=== PATIENT | female | born 1980 | race Caucasian/White ===

== ENCOUNTER → 2016-11-25 | Outpatient (CLI) | payer OTHER ==
--- NOTE | 2016-11-25 09:20 | MM ---
Reason for exam: screening (asymptomatic). Baseline mammogram. History: Family history of breast cancer in paternal cousin at age 48. Took hormonal contraceptives beginning at age 18. Physical Findings: Nurse did not find any significant physical abnormalities on exam. MG Screening Mammo w CAD Bilateral CC and MLO view(s) were taken. The breast tissue is heterogeneously dense. This may lower the sensitivity of mammography. There is no discrete abnormality. These results were verbally communicated with the patient and result sheet given to the patient on 11/25/16. ASSESSMENT: Negative, BI-RAD 1 RECOMMENDATION: Routine screening mammogram of both breasts at age 38. (unless clinical indication to start sooner)
== END | disposition home or self-care (01) ==
LOC: RADMAMWWP 08:23
PROVIDERS: ATTEND Family Medicine
DX: Z12.31 Encounter for screening mammogram for malignant neoplasm of breast (principal)

== ENCOUNTER → 2023-04-15 | Outpatient (CLI) | payer OTHER ==
--- NOTE | 2023-04-19 14:21 | MM ---
Reason for Exam: Screening (asymptomatic). Last mammogram was performed 6 year(s) and 4 month(s) ago. Patient History: Menarche at age 9. First Full-Term at age 16. Hormonal Contraceptives, from age 18 until age 20. Paternal cousin had breast cancer, age 48. Maternal aunt had breast cancer, age 73. Maternal aunt tested for BRCA1 outcome was negative. Risk Values: Mercy 5 year model risk: 0.6%. NCI Lifetime model risk: 7.7%. Prior Study Comparison: 11/25/2016 Bilateral Screening Mammogram, [facility]. Tissue Density: The breast tissue is heterogeneously dense. This may lower the sensitivity of mammography. Findings: Analyzed By CAD. Asymmetric density superior left MLO view anterior to middle depth appears more defined. This may represent superimposition shadow but further evaluation is recommended. Otherwise, no significant change. Overall Assessment: Incomplete: need additional imaging evaluation, BI-RAD 0 Management: Special View Mammogram of the left breast. Diagnostic Breast Ultrasound of the left breast. . Electronically signed and approved by: Mercedez Humphrey M.D. Radiologist
== END | disposition home or self-care (01) ==
LOC: RADMAMWWP 16:12
PROVIDERS: ATTEND Family Medicine
DX: Z12.31 Encounter for screening mammogram for malignant neoplasm of breast (principal); Z80.3 Family history of malignant neoplasm of breast
CPT/HCPCS: 77063; 77067

== ENCOUNTER → 2023-05-19 | Outpatient (CLI) | payer OTHER ==
--- NOTE | 2023-05-19 09:06 | MM ---
Reason for Exam: Additional evaluation requested from abnormal screening. Last screening mammogram was performed 1 month(s) ago. Patient History: Menarche at age 9. First Full-Term at age 16. Patient has history of breast feeding. Hormonal Contraceptives, from age 18 until age 20. Paternal cousin had breast cancer, age 48. Maternal aunt had breast cancer, age 73. Maternal aunt tested for BRCA1 outcome was negative. Risk Values: Mercy 5 year model risk: 0.6%. NCI Lifetime model risk: 7.7%. Prior Study Comparison: 11/25/2016 Bilateral Screening Mammogram, [facility]. 04/15/2023 Bilateral MG 3D screening mammo w/cad, [facility]. Tissue Density: Left: The breast tissue is heterogeneously dense. This may lower the sensitivity of mammography. Findings: Analyzed By CAD. Nodular density is much improved on spot compression imaging. Continued ultrasound evaluation however is recommended. Overall Assessment: Incomplete: need additional imaging evaluation, BI-RAD 0 Management: Diagnostic Breast Ultrasound of the left breast. . Results were given to the patient verbally at the time of exam. Patient should continue monthly self-breast exams. A clinical breast exam by your physician is recommended on an annual basis. This exam should not preclude additional follow-up of suspicious palpable abnormalities. Note on Mercy scores and lifetime risk: 1. A Mercy score greater than 3% is considered moderate risk. If this is the case, consider specialist referral to assess eligibility for a risk reducing agent. 2. If overall lifetime risk for the development of breast cancer is 20% or higher, the patient may qualify for future screening with alternating mammogram and breast MRI. Electronically signed and approved by: Javier Sweeney M.D. Radiologis
--- NOTE | 2023-05-19 09:24 | USB ---
Reason for Exam: Additional evaluation requested from abnormal screening. Patient History: Menarche at age 9. First Full-Term at age 16. Patient has history of breast feeding. Hormonal Contraceptives, from age 18 until age 20. Paternal cousin had breast cancer, age 48. Maternal aunt had breast cancer, age 73. Maternal aunt tested for BRCA1 outcome was negative. Risk Values: Mercy 5 year model risk: 0.6%. NCI Lifetime model risk: 7.7%. Technique: Method: Targeted. Prior Study Comparison: 11/25/2016 Bilateral Screening Mammogram, [facility]. 04/15/2023 Bilateral MG 3D screening mammo w/cad, [facility]. Findings: The upper section of the breast of the left breast, the axilla of the left breast and the retroareolar of the left breast were scanned. Complex lesion noted at the left 12:00 position 3 cm from the nipple measuring 1.1 x 0.5 cm requires further evaluation with ultrasound-guided core biopsy. 2 small to characterize additional hypoechoic area at the left 10:00 position 2 cm from the nipple should be followed.. Overall Assessment: Suspicious, BI-RAD 4 Management: Ultrasound Core Biopsy of the left breast. A clinical breast exam by your physician is recommended on an annual basis and results should be correlated with mammographic findings. This exam should not preclude additional follow-up of suspicious palpable abnormalities. Results were given to the patient verbally at the time of exam. Electronically signed and approved by: Javier Sweeney M.D. Radiologis
== END | disposition home or self-care (01) ==
LOC: RADMAMWWP 08:35
PROVIDERS: ATTEND Family Medicine
DX: N64.9 Disorder of breast, unspecified (principal); R92.332 Mammographic heterogeneous density, left breast; Z80.3 Family history of malignant neoplasm of breast
CPT/HCPCS: 77061; 77065

== ENCOUNTER → 2023-05-31 | Day surgery (SDC) | payer OTHER ==
--- NOTE | 2023-06-04 12:09 | MM ---
Reason for Exam: Additional evaluation requested from prior study. Last screening mammogram was performed 2 month(s) ago. Patient History: Menarche at age 9. First Full-Term at age 16. Patient has history of breast feeding. Hormonal Contraceptives, from age 18 until age 20. Paternal cousin had breast cancer, age 48. Maternal aunt had breast cancer, age 73. Maternal aunt tested for BRCA1 outcome was negative. Risk Values: Mercy 5 year model risk: 0.6%. NCI Lifetime model risk: 7.7%. Prior Study Comparison: 11/25/2016 Bilateral Screening Mammogram, [facility]. 04/15/2023 Bilateral MG 3D screening mammo w/cad, [facility]. 05/19/2023 Left MG 3D work up w/cad , [facility]. Tissue Density: Left: The breast tissue is heterogeneously dense. This may lower the sensitivity of mammography. Pathology Description: Location: 12 o'clock. Marker Left Behind. Needle Type: Mammotome Cores: 5 Gauge: 13 The procedure of ultrasound guided core biopsy was explained to the patient. Benefits, alternatives, and risks were discussed. An informed consent was then obtained. The 1.0 cm hypoechoic area in the 12:00 left breast 3 cm from the nipple is identified and targeted for biopsy. The patient was placed in supine positioning for imaging and for the procedure. The overlying skin was prepped and draped in usual sterile fashion. Lidocaine was used as anesthetic into the skin and subcutaneous tissue up to area of concern in the 12:00 left breast. Under ultrasound guidance, a 13-gauge vacuum-assisted mammotome Elite biopsy gun was used to obtain 5 core samples. Following this, a wing clip was left in lesion. The patient tolerated the procedure well without any immediate complication. The patient was kept in the radiology department for short stay after the procedure and then discharged home in stable condition. Postprocedure mammogram: The patient was transferred to mammography for physician ordered post procedure mammogram for clip placement verification. Post procedure mammogram shows the wing clip in place. IMPRESSION: Successful, uncomplicated ultrasound guided core biopsy of area of concern in the 12:00 left breast, full pathology results to follow. Pathology Results: Result: Benign, Fibrocystic change. LEFT BREAST, 12:00, 3 CM FROM NIPPLE, NEEDLE CORE BIOPSY: Fibrocystic changes including cysts and fibrosis. Pseudoangiomatous stromal hyperplasia (PASH). Negative for malignancy. Overall Assessment: Benign Assessment: MG diagnostic mammo LT wo CAD. - Left: Benign, BI-RAD 2. Management: Diagnostic Breast Ultrasound of the left breast in 6 months. Electronically signed and approved by: Mercedez Humphrey M.D. Radiologist
== END ==
LOC: RADUSWWP 10:30
PROVIDERS: ATTEND Family Medicine
DX: N60.12 Diffuse cystic mastopathy of left breast (principal); N64.89 Other specified disorders of breast
CPT/HCPCS: 88305; 77065; 19083; A4648

== ENCOUNTER → 2024-05-22 | Outpatient (CLI) | payer OTHER ==
--- NOTE | 2024-05-22 09:59 | CT ---
EXAMINATION TYPE: CT abdomen pelvis w con CT DLP: 957 mGycm, Automated exposure control for dose reduction was used. DATE OF EXAM: 05/22/2024 9:39 AM COMPARISON: None CLINICAL INDICATION:Female, 43 years old with history of R10.9 unspecified abdominal pain; Right side d abdominal pain. TECHNIQUE: Standard CT of the abdomen and pelvis following the administration of 100 cc of Isovue 3 00 IV contrast material and oral contrast. Coronal and sagittal reformats were performed. FINDINGS: LOWER CHEST: Unremarkable ABDOMEN LIVER: Few subcentimeter hypoattenuating structures are demonstrated throughout the liver, which are too small to accurately characterize but statistically likely to represent simple hepatic cysts GALLBLADDER AND BILE DUCTS: Unremarkable. PANCREAS: Unremarkable. SPLEEN: Unremarkable. ADRENAL GLANDS: Unremarkable. KIDNEYS AND URETERS: No evidence of hydronephrosis or renal calculus. The kidneys enhance symmetrical ly. Contrast is demonstrated within both collecting systems on the delayed phase. PELVIS BLADDER: Unremarkable REPRODUCTIVE: The uterus is surgically absent. Right ovarian probable posterior cyst measuring up to 2.2 cm. ABDOMEN & PELVIS STOMACH AND BOWEL: Small hiatal hernia, duodenum is unremarkable. Enteric contrast reaches the rectum . No focal bowel wall thickening or surrounding inflammatory changes. The appendix is within normal l imits. No evidence of bowel obstruction. PERITONEUM: No evidence of pneumoperitoneum or free fluid. VASCULATURE: No evidence of aortic aneurysm. MUSCULOSKELETAL: No acute osseous abnormalities LYMPH NODES: No evidence for lymphadenopathy. SOFT TISSUE/ABDOMINAL WALL: Unremarkable IMPRESSION: No CT evidence for acute abdominal/pelvic process. [facility], , 05/22/2024 9:56 AM
== END | disposition home or self-care (01) ==
LOC: RADCTMAIN 07:48
PROVIDERS: ATTEND Emergency Medicine
DX: K44.9 Diaphragmatic hernia without obstruction or gangrene (principal); R93.2 Abnormal findings on diagnostic imaging of liver and biliary tract; Z90.710 Acquired absence of both cervix and uterus
CPT/HCPCS: 74177; Q9967